=== PATIENT | male | born 1945 | race Two or more races ===

== ENCOUNTER 2017-07-04 18:56 | Emergency (ER) | payer MEDICARE, OTHER ==
[~2017-07-04] VITALS: Ht 170.2 cm; Wt 72.6 kg
[2017-07-04 20:49] LABS: Platelet Count (auto) 95 10^3/uL (140-450)
[2017-07-04 20:51] LABS: Hematocrit 24.8 % (41.0-53.0); Hemoglobin 8.6 g/dL (13.5-17.5); Mean Corpuscular Hemoglobin 36.4 pg (28.0-32.0); Mean Corpuscular Hgb Conc. 34.8 g/dL (32.0-36.0); Mean Corpuscular Volume 104.4 fL (80.0-100.0); Red Blood Cells 2.38 10^6/uL (4.5-5.90); Red Cell Distribution Width 16.3 % (11.8-14.3)
[2017-07-04 21:02] LABS: Band Neutrophils % (manual) 0; Basophils % (manual) 0 (0.0-2.0); Blast Cells 0; INR 1.1 (0.9-1.15); Metamyelocytes % 0; Myelocytes % 0; Partial Thromboplastin Time 24.1 sec (22.64-33.71); Promyelocytes % 0; Reactive Lymphocytes 0
[2017-07-04 21:03] LABS: Albumin 2.9 g/dL (3.4-5.0); BUN/Creatinine Ratio 31.2; Calcium 7.9 mg/dL (8.5-10.1); Magnesium 2.5 mg/dL (1.6-2.6); Potassium 3.8 mmol/L (3.5-5.1)
[2017-07-04 21:06] LABS: Bilirubin, Total 0.8 mg/dL (0.2-1.0); Total Protein 5.6 g/dL (6.4-8.2)
[2017-07-04 23:05] LABS: Eosinophils % (manual) 2 (0-7); Lymphocytes % (manual) 47 (10.0-50.0); Monocytes % (manual) 3 (0-12)
[2017-07-04] MEDS ORDERED: ENOXAPARIN SOD 80 MG/0.8ML SYRINGE SC ONE (23:30)
[2017-07-04] MEDS ORDERED: ASPirin 81 mg TAB PO ONE (23:30)
[2017-07-05] MEDS ORDERED: FUROSEMIDE 40 MG/4 ML VIAL IV ONE
[2017-07-05] MEDS ORDERED: NITROGLYCERIN 0.4 MG SL TAB SL ONE (01:15)
[2017-07-05 09:30] VITALS: BP 112/70
[2017-07-05] MEDS ORDERED: SODIUM CHLORIDE 0.9% 500 ML IV ONE (09:30)
== END 2017-07-05 10:15 | disposition home or self-care (01) ==
LOC: ER 19:12
DX: I11.0 Hypertensive heart disease with heart failure (principal); I50.9 Heart failure, unspecified; R79.89 Other specified abnormal findings of blood chemistry; D64.9 Anemia, unspecified; I48.91 Unspecified atrial fibrillation; D61.818 Other pancytopenia; Z79.82 Long term (current) use of aspirin
CPT/HCPCS: 36415; 71046; 80053; 83735; 83880; 84443; 84484; 85007; 85027; 85610; 85730; 93005; 96361; 96374; 99285; J1650; J1940; J7030